=== PATIENT | female | born 1990 | race Caucasian/White ===

== ENCOUNTER 2019-09-26 12:22 | Inpatient (IN) ==
[2019-09-26] MEDS ORDERED: OXYTOCIN 30 UNITS/500 ML BAG IV PRN ×2 (13:30→19:01)
[2019-09-26 13:49] LABS: Hematocrit (blood only) 39.8 % (37-47); Hemoglobin 13.1 g/dL (12.0-16.0); Mean Corpuscular Hemoglobin 27.5 pg (25-34); Mean Corpuscular Volume 83.4 fL (80-100); Mean Platelet Volume 9.5 fL (7.4-10.4); Platelet Count 186 K/uL (130-400); RDW Coefficient of Variation 15.3 % (11.5-14.5); RDW Standard Deviation 46.5 fL (36.4-46.3); Red Blood Count 4.77 M/uL (4.2-5.4); White Blood Count 18.41 K/uL (4.8-10.8)
[2019-09-26 13:59] LABS: Mean Corpuscular Hgb Conc 32.9 g/dL (32-36)
--- NOTE | 2019-09-26 14:22 | History & Physical Report ---
Date of Service September 26, 2019 Assessment & Plan Admission and Anticipated Discharge Date Admission Date: September 26, 2019 IUP at term in labor presenting part is high - Stephie is comfortable enough yet to try ambulating to help the head to descend. She will eventually want an epidural. ADmitting orders are submitted anticipate vaginal History of Present Illness Primary Care Provider: NO PCP Patient is a 29 yo white female EDC 09/28/29 who presents with regular contractions since 0600 this am. (+) bloody show, (-) SPROM. GBS negative/ blood type A positive. has been uncomplicated Allergies Allergy/AdvReac Type Severity Reaction Status Date / Time Sulfa (Sulfonamide Allergy diarrhea Verified 09/26/19 12:28 Antibiotics) Home Medications Home Medications Medication Instructions Recorded Confirmed Type prenat.vits,berenice,eme-[id number] 1 tab PO DAILY 02/27/19 09/26/19 History Patient History Family History (Updated 02/27/19 @ 13:23 by Emiliana Goldman) Mother Anemia Hypertension Grandmother (Maternal) Anemia Diabetes Liver disease Thyroid disease Grandfather (Paternal) Diabetes Hypertension Aunt Colorectal cancer Social History (Updated 02/27/19 @ 13:25 by Emiliana Ameriprimemanuel) Preferred Language: Turkmen Communication Ability: Effective Beliefs That Will Affect Care: None marital status: marital status details: Josiah Romero (26) [phone] Current Living Situation: Spouse Current Living Situation Comment: lives with spouse, 5 cats, 1 abby, not changing litter current occupational status: employed current occupation: seamstress Other Information That Helps Us Care for You: No Feels Safe at Home: Yes Safety Concerns: Feels Safe At This Time Smoking Status: Never smoker Hx Alcohol Use: Yes Alcohol type: beer, wine and hard liquor Hx Substance Use: No Review of Systems All systems reviewed & are unremarkable except as noted in HPI & below Physical Exam Constitutional: WD/WN, vitals as above Respiratory: normal respiratory effort, lungs clear to auscultation Cardiovascular: RRR, no murmur, no edema Gastrointestinal (Abdomen): normal bowel sounds, soft, nontender, no hepatosplenomegaly Psychiatric: A+Ox3, euthymic affect Genitourinary: OB Exam Abdomen: + vertex (confirmed by sonogram), + estimated weight (7-8 pounds) and + regular contractions (every 3 minutes) Manual OB Exam: + cervical dilation 5 cm, + cervical effacement 100% and + station high OB Exam Monitor Tracing: + external FHT monitor used, + external uterine monitor used, + category I and + normal FHT variability Results & Data ([facility]) Vital Signs (Past 12 Hours) Vital Signs Temp Pulse Resp BP 09/26/19 12:33 98.8 F 18 09/26/19 12:27 120 H 138/80 Coding Level of Care Code None
[2019-09-26] MEDS: LACTATED RINGER'S 1,000 ML IV PRN ×2 (14:41→18:53)
[2019-09-26] MEDS ORDERED: fentaNYL 2MCG/ML ROPIV 1.25MG/ML 100 ML BAG EPI ONE (14:50)
[2019-09-26] MEDS ORDERED: fentaNYL citrate 100 MCG/2 ML VIAL ONE (14:50)
[2019-09-26] MEDS ORDERED: BUPIVACAINE 0.25% 30 ML VIAL ONE (14:50)
[2019-09-26] MEDS ORDERED: ePHEDrine sulfate 50 MG/ML AMP ONE (14:50)
--- NOTE | 2019-09-26 15:13 | Anesthesiology Consultation ---
Date of Service September 26, 2019 Assessment & Plan Chart Review Chart Review: Acceptable Risk for Surgery, Patient NOT seen in Pre Admission Testing and Acceptable Risk for Labor Epidural Consults Requested none ASA ASA2 Proposed Anesthesia Anesthesia Type: Labor Epidural and CSE Risk / Benefits Reviewed With: PT / POA / Parent / Guardian, Accepts Plan and Informed Consent Obtained Additional Comments: covid test pending History Height/Weight Height: 5 ft 4 in Weight: 98.43 kg Allergies Allergy/AdvReac Type Severity Reaction Status Date / Time Sulfa (Sulfonamide Allergy diarrhea Verified 09/26/19 12:28 Antibiotics) Medications Home Medications Medication Instructions Recorded Confirmed Last Taken prenat.vits,berenice,[id number]-[id number] 1 tab PO DAILY 02/27/19 09/26/19 09/26/19 Active Medications Generic Name Dose Route Start Last Admin Trade Name Freq PRN Reason Stop Dose Admin Lactated Ringer's 1,000 mls @ 125 mls/hr 09/26/19 13:30 09/26/19 14:41 Lr IV 09/28/19 13:29 125 mls/hr .Q8H PRN Administration L&D Protocol Protocol NPO Date Last Intake of Fluids: 09/26/19 Time Last Intake of Fluids: 14:15 Date Last Intake of Solids: 09/26/19 Time Last Intake of Solids: 10:00 Past Medical History Medical History Cervical cancer screening Encounter for anatomic survey Varicella vaccine Exercise / Class Metabolic Activity II 4-5 Yardwork/Stairs/Walk up hill Past Family History Family History Mother Anemia Hypertension Grandmother (Maternal) Anemia Diabetes Liver disease Thyroid disease Grandfather (Paternal) Diabetes Hypertension Aunt Colorectal cancer Past Surgical History Surgical History No pertinent past surgical history Past Anesthesia History No Hx of Anesthesia Complications and No Family Hx of Anesthesia Complications History of PONV No Hx of PONV and No Hx of Motion Sickness Social History Smoking Status: Never smoker Hx Alcohol Use: Yes Alcohol type: beer, wine and hard liquor alcohol intake frequency: other Alcohol Intake Frequency Comment: first trimester Hx Substance Use: No Physical Exam Vital Signs Last Vital Signs Temp 37.1 C 09/26/19 12:33 Pulse 86 09/26/19 15:08 Resp 18 09/26/19 12:33 BP 133/84 09/26/19 15:05 Pulse Ox 100 09/26/19 15:08 Constitutional + obese ENMT Mouth: no dentition abnormality Thyromental Distance: < 3.5 Finger Breadths Mallampati Class: II Neck normal visual inspection and trachea midline; neck extension not limited Respiratory normal respiratory effort Auscultation: lungs clear to auscultation bilaterally Cardiovascular Rate/Rhythm: regular rate and regular rhythm Heart Sounds: no murmur Vessels: no carotid bruit Musculoskeletal Spine: lumbar spine normal to inspection; normal cervical ROM Neurologic moves all extremities Motor/Sensory: no sensory deficit Psychiatric Orientation: alert and oriented x 3 Testing Laboratory Results 09/26/19 13:40
[2019-09-26] MEDS ORDERED: PROMETHAZINE HCL 25 MG in SODIUM CHLORIDE 0.9% 50 ML IV PRN (15:32)
[2019-09-26] MEDS ORDERED: NALOXONE HCL 1 MG in SODIUM CHLORIDE 0.9% 1000ML 1,000 ML IV PRN (15:32)
[2019-09-26] MEDS ORDERED: NALOXONE HCL 0.4 MG/1 ML VIAL/CARP IV PRN (15:32)
[2019-09-26] MEDS ORDERED: fentaNYL 2MCG/ML ROPIV 1.25MG/ML 100 ML BAG EPI PRN (15:32)
[2019-09-26] MEDS ORDERED: DiphenhydrAMINE HCL 50 MG/ML VIAL IV PRN (15:32)
[2019-09-26] MEDS ORDERED: ePHEDrine sulfate 50 MG/ML AMP IV PRN (15:32)
[2019-09-26] MEDS ORDERED: ONDANSETRON INJ 2 MG/ML 2 ML VIAL IV PRN (15:32)
[2019-09-27] MEDS: LACTATED RINGER'S 1,000 ML IV PRN (01:15)
[2019-09-27] MEDS ORDERED: HYDROCORTISONE ACETATE 25 MG SUPP PR PRN (04:03)
[2019-09-27] MEDS ORDERED: OXYCODONE/ACETAMINOPHEN 5mg/325mg TAB PO PRN (04:03)
[2019-09-27] MEDS ORDERED: OXYTOCIN 30 UNITS/500 ML BAG IV PRN (04:03)
[2019-09-27] MEDS ORDERED: DIPHTHERIA/TETANUS/PERTUSSIS 0.5 ML SYR/VIAL IM ONE (04:03)
[2019-09-27] MEDS ORDERED: BENZOCAINE 20% AER SPR 82.5 GM CAN EXT PRN (04:03)
[2019-09-27] MEDS ORDERED: ACETAMINOPHEN 325 MG TAB PO PRN (04:03)
[2019-09-27] MEDS ORDERED: bisacodyL 10 MG SUPP PR PRN (04:03)
[2019-09-27] MEDS ORDERED: SUPERCREAM 0.870% 15 GM JAR EXT PRN (04:03)
--- NOTE | 2019-09-27 08:06 | Anesthesia Procedure Note ---
Date of Service September 27, 2019 Anesthesia Post Epidural Note Vital Signs Vital Signs: Temp Pulse Resp BP Pulse Ox 36.7 C 99 H 16 122/73 85 L 09/27/19 06:20 09/27/19 06:20 09/27/19 06:20 09/27/19 06:20 09/27/19 03:45 Notes Mental Status: alert / awake / arousable Nausea / Vomiting: adequately controlled Pain: adequately controlled Airway Patency, RR, SpO2: stable & adequate BP & HR: stable & adequate Hydration State: stable & adequate Neuraxial Anesthesia: was administered and sensory block is resolving Anesthetic Complications: no major complications apparent Epidural: Removed without complications and With tip intact
[2019-09-27] MEDS: PRENATAL VITAMIN 1 TAB PO SCH (08:35)
[2019-09-27] MEDS: DOCUSATE SODIUM 100 MG CAP PO SCH ×2 (08:35→21:27)
--- NOTE | 2019-09-27 09:05 | Obstetrical Progress Note ---
Date of Service September 27, 2019 Assessment & Plan (1) Encounter for care and examination after delivery: satisfactory course continue current care plan Day #:: 1 Subjective Ambulation: ambulating normally Voiding: no voiding problems Passing Gas:: Yes Diet Tolerance:: regular diet Lochia:: Moderate Feeding Type:: breast feeding Review of Systems All systems reviewed & are unremarkable except as noted in HPI & below Physical Exam Constitutional WD/WN, vitals as above Psychiatric A+Ox3, euthymic affect Genitourinary OB Exam Abdomen: + fundal height Fundus: + firm and + relation to umbilicus (at U) Results [facility] ([facility]) Vital Signs (Past 12 Hours) Vital Signs Temp Pulse Pulse Resp BP BP Pulse Ox 09/27/19 06:20 98.1 F 99 H 16 122/73 09/27/19 05:51 98.2 F 91 H 18 121/63 09/27/19 05:38 90 117/60 09/27/19 05:23 91 H 18 116/62 09/27/19 05:08 95 H 118/63 09/27/19 04:53 98.2 F 102 H 16 123/74 09/27/19 04:38 107 H 18 119/66 09/27/19 04:23 104 H 18 118/62 09/27/19 04:09 57 L 16 123/57 L 09/27/19 03:53 98.6 F 58 L 18 118/56 L 09/27/19 03:45 109 H 85 L 09/27/19 03:36 115 H 74 L 09/27/19 03:30 129 H 75 L 09/27/19 03:29 107 H 79 L 09/27/19 03:25 127 H 95 09/27/19 03:24 131 H 87 L 09/27/19 03:20 122 H 97 09/27/19 03:18 137 H 116/63 09/27/19 03:15 160 H 91 09/27/19 03:10 148 H 84 L 09/27/19 03:08 132 H 93 09/27/19 03:05 126 H 94 09/27/19 03:04 129 H 133/60 09/27/19 03:00 129 H 80 L 09/27/19 02:55 123 H 96 09/27/19 02:54 132 H 89 L 09/27/19 02:49 136 H 96 09/27/19 02:46 125 H 134/61 09/27/19 02:44 143 H 97 09/27/19 02:42 127 H 84 L 09/27/19 02:39 115 H 98 09/27/19 02:37 100 H 87 L 09/27/19 02:34 106 H 99 09/27/19 02:31 125 H 118/64 88 L 09/27/19 02:29 107 H 99 09/27/19 02:24 107 H 100 09/27/19 02:19 101 H 99 09/27/19 02:18 94 H 110/55 L 09/27/19 02:14 100 H 99 09/27/19 02:09 101 H 99 09/27/19 02:04 115 H 121/69 99 09/27/19 01:59 120 H 100 09/27/19 01:54 115 H 99 09/27/19 01:49 119 H 100 09/27/19 01:44 98.4 F 105 H 18 100 09/27/19 01:39 107 H 100 09/27/19 01:34 113 H 100 09/27/19 01:31 55 L 131/58 L 09/27/19 01:29 98 H 100 09/27/19 01:24 96 H 100 09/27/19 01:19 101 H 96 09/27/19 01:16 94 H 126/56 L 09/27/19 01:14 89 100 09/27/19 01:09 97 H 100 09/27/19 01:04 99 H 99 09/27/19 01:02 100 H 134/77 09/27/19 01:00 99.9 F H 18 09/27/19 00:59 100 H 99 09/27/19 00:54 98 H 100 09/27/19 00:49 105 H 100 09/27/19 00:46 114 H 114/73 09/27/19 00:44 108 H 98 09/27/19 00:39 69 98 09/27/19 00:34 114 H 99 09/27/19 00:32 113 H 22 118/75 09/27/19 00:29 66 99 09/27/19 00:24 111 H 100 09/27/19 00:19 113 H 100 09/27/19 00:14 106 H 99 09/27/19 00:09 117 H 99 09/27/19 00:04 141 H 99 09/27/19 00:02 97 H 136/78 09/26/19 23:59 104 H 98 09/26/19 23:54 98 H 99 09/26/19 23:49 95 H 99 09/26/19 23:47 97 H 130/77 09/26/19 23:44 96 H 99 09/26/19 23:39 97 H 100 09/26/19 23:34 102 H 100 09/26/19 23:32 98 H 125/76 09/26/19 23:29 95 H 100 09/26/19 23:24 96 H 100 09/26/19 23:22 108 H 92 09/26/19 23:19 107 H 95 09/26/19 23:18 97 H 132/82 09/26/19 23:14 104 H 96 09/26/19 23:11 116 H 93 09/26/19 23:09 106 H 99 09/26/19 23:04 99.3 F 95 H 18 100 09/26/19 22:59 89 100 09/26/19 22:54 95 H 100 09/26/19 22:49 89 99 09/26/19 22:46 82 106/56 L 09/26/19 22:44 92 H 99 09/26/19 22:39 89 100 09/26/19 22:34 98 H 99 09/26/19 22:33 81 107/56 L 09/26/19 22:29 88 100 09/26/19 22:24 88 100 09/26/19 22:19 85 99 09/26/19 22:16 87 105/55 L 09/26/19 22:14 79 100 09/26/19 22:09 81 100 09/26/19 22:04 90 100 09/26/19 22:02 91 H 18 108/57 L 09/26/19 21:59 97 H 100 09/26/19 21:54 91 H 100 09/26/19 21:49 88 100 09/26/19 21:46 99 H 126/70 09/26/19 21:44 94 H 100 09/26/19 21:39 85 100 09/26/19 21:34 93 H 100 09/26/19 21:32 92 H 129/73 09/26/19 21:29 93 H 100 09/26/19 21:24 97 H 100 09/26/19 21:19 104 H 100 09/26/19 21:18 90 126/77 09/26/19 21:14 93 H 100 09/26/19 21:09 91 H 99 09/26/19 21:04 82 100
--- NOTE | 2019-09-27 13:17 | Delivery Summary ---
DATE OF OPERATION: 09/27/2019 The patient is a 29-year-old G1, P0 white female, EDC of 09/29/2019 who presented with regular contractions on the morning of 09/26/2019. She was 5 cm on admission, but the presenting part was high with vertex as documented by ultrasound. She ambulated initially and then received epidural analgesia, which was effective. At this point, the head was then at -2 station and membranes were ruptured at 6 cm dilated for clear fluid. She required Pitocin augmentation of her labor, she did progress to full dilation and pushed effectively over a midline episiotomy which was done because of the presenting part. At the time of , she was unable to push without creating a little bit of extra room. A small midline episiotomy was done and with the next contraction she delivered easily over that perineum. A loose nuchal cord was reduced after the head was delivered. There was mild shoulder dystocia present which was relieved with flexion of the hips and suprapubic pressure. The was then placed on the mother's abdomen for further attention and drying. There was poor respiratory effort. Therefore, the cord was clamped and cut immediately and the was taken to the baby bed for further attention and drying and did receive positive pressure ventilation. The placenta was expressed intact after obtaining cord blood sample. It was intact and had a 3-vessel cord. The second degree perineal laceration was repaired with 3-0 chromic in the usual fashion. Blood loss was 200 mL bleeding was controlled with dilute Pitocin. After initial treatment, the was then crying spontaneously and moving all 4 limbs. I attest to the content of the Intraoperative Record and any orders documented therein. Any exception s are noted below.
[2019-09-27] MEDS: IBUPROFEN 600 MG TAB PO PRN (21:27)
[2019-09-28 05:47] LABS: Hematocrit (blood only) 31.2 % (37-47); Hemoglobin 10.5 g/dL (12.0-16.0); Mean Corpuscular Hemoglobin 28.1 pg (25-34); Mean Corpuscular Hgb Conc 33.7 g/dL (32-36); Mean Corpuscular Volume 83.4 fL (80-100); Mean Platelet Volume 9.1 fL (7.4-10.4); Platelet Count 174 K/uL (130-400); RDW Coefficient of Variation 15.7 % (11.5-14.5); Red Blood Count 3.74 M/uL (4.2-5.4); White Blood Count 21.89 K/uL (4.8-10.8)
--- NOTE | 2019-09-28 06:02 | Obstetrical Progress Note ---
Date of Service September 28, 2019 Assessment & Plan (1) : POD #1 Doing well, ambulating well, voiding well, tolerating oral intake. Continue routine post care. After discharge will have follow-up in 6 weeks. Roma Card is a 29 y/o female ; POD # _ following spontaneous vaginal delivery at 39 4/7 weeks; doing well this morning; 1/10 abdominal cramping/ pain; voiding well; tolerating meals overnight and able to ambulate some; some persistent spotting with intermittent improvement this morning. Review of Systems Constitutional: denies fever, chills, sweat, headache Respiratory: denies shortness of breath, difficulty breathing Cardiac: denies chest pain, palpitations, chest pressure Breast: denies breast pain : denies dysuria Physical Exam General: Alert, oriented. No acute distress. Cardiac: Regular rate and rhythm, no murmurs/rubs/gallops. Respiratory: Clear to auscultation bilaterally a/p, no wheezes/rales/rhonchi. No increased work of breathing. Symmetrical chest rise. No respiratory distress. Abdomen: Soft, nontender, nondistended. Bowel sounds present. Uterus: Uterine fundus firm, palpable _cm below umbilicus. Lower Extremities: No lower extremity edema or swelling. No deep calf pain. Lesia's negative bilaterally. Results & Data Vital Signs (Past 12 Hours) Vital Signs Temp Pulse Resp BP Pulse Ox 09/28/19 03:25 36.7 C 81 18 120/77 99 09/27/19 23:40 36.7 C 78 18 112/68 98 09/27/19 20:15 36.8 C 94 H 20 129/77 98
[2019-09-28] MEDS: DOCUSATE SODIUM 100 MG CAP PO SCH ×2 (07:52→20:04)
[2019-09-28] MEDS: IBUPROFEN 600 MG TAB PO PRN ×2 (07:52→20:05)
[2019-09-28] MEDS: PRENATAL VITAMIN 1 TAB PO SCH (07:52)
[2019-09-28] MEDS ORDERED: bisacodyL 5 MG TABEC PO SCH (20:00)
[2019-09-29 06:05] LABS: Hematocrit (blood only) 31.2 % (37-47); Hemoglobin 10.5 g/dL (12.0-16.0)
--- NOTE | 2019-09-29 06:19 | Obstetrical Progress Note ---
Date of Service <Darwin Castro MD - Last Filed: 09/29/19 06:19> September 29, 2019 Assessment & Plan <Darwin Castro MD - Last Filed: 09/29/19 06:19> (1) : POD #1 Doing well, ambulating well, voiding well, tolerating oral intake. Continue routine post care. After discharge will have follow-up in 6 weeks. Subjective <Darwin Castro MD - Last Filed: 09/29/19 06:19> Stephie is a 29 y/o female ; POD #2 following spontaneous vaginal delivery at 39 weeks; doing well this morning; No abdominal cramping/ pain; voiding well; tolerating meals overnight and able to ambulate some; some minimal spotting this morning. Review of Systems Constitutional: denies fever, chills, sweat, headache Respiratory: denies shortness of breath, difficulty breathing Cardiac: denies chest pain, palpitations, chest pressure Breast: denies breast pain : denies dysuria Physical Exam <Darwin Castro MD - Last Filed: 09/29/19 06:19> General: Alert, oriented. No acute distress. Cardiac: Regular rate and rhythm, no murmurs/rubs/gallops. Respiratory: Clear to auscultation bilaterally a/p, no wheezes/rales/rhonchi. No increased work of breathing. Symmetrical chest rise. No respiratory distress. Abdomen: Soft, nontender, nondistended. Bowel sounds present. Uterus: Uterine fundus firm, palpable 2cm below umbilicus. Lower Extremities: No lower extremity edema or swelling. No deep calf pain. Lesia's negative bilaterally. Results & Data <Darwin Castro MD - Last Filed: 09/29/19 06:19> Vital Signs (Past 12 Hours) Vital Signs Temp Pulse Resp BP 09/29/19 00:00 36.8 C 79 18 121/72 <Jasmin Bennett MD - Last Filed: 09/29/19 07:13> Co-Signing Physician Notes I have reviewed the resident's note and examined the patient myself, and agree with the note above.
[2019-09-29] MEDS: PRENATAL VITAMIN 1 TAB PO SCH (07:42)
[2019-09-29] MEDS: DOCUSATE SODIUM 100 MG CAP PO SCH (07:42)
== END 2019-09-29 15:43 | disposition home or self-care (01) | DRG 807 ==
LOC: OPB 12:22 → 4S1 12:23 → 4S2 09-27 06:00